=== PATIENT | female | born 1980 | race Caucasian/White ===

== ENCOUNTER → 2017-02-27 | Outpatient (CLI) | payer BC ==
--- NOTE | 2017-02-27 16:31 | KCIC ---
CHEST PA LATERAL Clinical indications: Cough for one week. Comparison study: None available. Findings: No acute lung infiltrate or pleural effusion or pulmonary edema or lung mass or pneumothorax is seen. The heart size, pulmonary vasculature, mediastinum and both saúl are unremarkable. The osseous structures appear intact. Impression: No acute radiographic abnormality is seen. Electronically signed by: Stephen Blanchard MD (02/27/2017 4:27 PM) [id number]
== END | disposition home or self-care (01) ==
LOC: KCIC 15:54
PROVIDERS: ATTEND Family Medicine
DX: R05 Cough (principal)
CPT/HCPCS: 71020

== ENCOUNTER → 2017-04-15 | Outpatient (CLI) | payer BC ==
--- NOTE | 2017-04-15 16:08 | KCIC ---
Examination: CT maxillofacial without contrast HISTORY: History of recurrent sinusitis COMPARISON: None available TECHNIQUE: Axial CT images of the maxillary facial bones were performed without contrast. Coronal and sagittal reformats are performed Exposure: One or more of the following individualized dose reduction techniques were utilized for this examination: 1. Automated exposure control 2. Adjustment of the mA and/or kV according to patient size 3. Use of iterative reconstruction technique FINDINGS: The bilateral orbital globes appear intact. Retro-orbital fat is maintained. The visualized frontal sinuses, bilateral ethmoidal sinuses, maxillary sinuses are clear. Mild mucosal thickening identified in the right sphenoid sinus likely sinus disease. There is opacification of the left mastoid air cells. The right mastoid air cells are clear. The orbital salmreon appear intact. IMPRESSION: 1. Mild mucosal thickening right sphenoid sinus. Otherwise the sinuses are clear. 2. Opacification of the left mastoid air cells, nonspecific. Electronically signed by: Hi De Leon MD (04/15/2017 4:05 PM) [id number]
== END | disposition home or self-care (01) ==
LOC: KCIC CT 15:24
PROVIDERS: ATTEND Family Medicine
DX: J32.9 Chronic sinusitis, unspecified (principal); H74.8X2 Other specified disorders of left middle ear and mastoid
CPT/HCPCS: 70486